=== PATIENT | female | born 1955 | race Caucasian/White ===

== ENCOUNTER 2020-12-18 06:09 | Day surgery (SDC) | payer OTHER ==
[~2020-12-18] VITALS: Ht 154.9 cm; Wt 56.8 kg
[~2020-12-18 06:09] MED LIST: AMLO-258 PO; ASPI-1450 PO; ATOR40TA28 PO; CALC-261 PO; CLOP75TA60 PO; DOCU-275 PO; INSLAN SQ; INSU100V SQ; LISI-894 PO; PANT-31 PO; SERT-162 PO; SPIR25 PO
[2020-12-18] MEDS ORDERED: MIDAZOLAM HCL 2 MG/2 ML VIAL IVP ONE (06:10)
[2020-12-18] MEDS ORDERED: CHONDR SULF A SOD/HYALURONATE 1.05 ML KIT IO ONE (06:10)
[2020-12-18] MEDS ORDERED: BALANCED SALT 15 ML OPHTHALMIC IRRIG.SOLN IO ONE (06:10)
[2020-12-18] MEDS ORDERED: EPINEPHrine 1:1,000 [1 MG/ML] AMP IM ONE (06:10)
[2020-12-18] MEDS ORDERED: FentaNYL CITRATE PF 100 MCG/2 ML VIAL IVP ONE (06:10)
[2020-12-18] MEDS ORDERED: TETRACAINE HCL/PF 0.5% 4 ML OPHTHALMIC SOLUTION OU ONE (06:10)
[2020-12-18] MEDS ORDERED: POVIDONE-IODINE 10% 15 ML SOLUTION UD TP ONE (06:10)
[2020-12-18] MEDS ORDERED: LIDOCAINE/PF 1% 2 ML VIAL IM ONE (06:10)
[2020-12-18] MEDS ORDERED: RINGERS SOLUTION,LACTATED 500 ML IV ONE ×3 (06:46→08:00)
[2020-12-18 06:48] LABS: COVID AG,FIA SOURCE NASOPHARYNGEAL
[2020-12-18] MEDS ORDERED: FURO40 PO (06:56)
[2020-12-18] MEDS ORDERED: KETOROLAC TROMETHAMINE 0.5% 5 ML OPHTHALMIC SOLUTION ONE (06:58)
[2020-12-18] MEDS ORDERED: TROPICAMIDE 1% 2 ML OPHTHALMIC SOLUTION ONE (06:59)
[2020-12-18] MEDS ORDERED: PHENYLEPHRINE HCL 2.5% 2 ML OPHTHALMIC SOLUTION ONE (06:59)
[2020-12-18] MEDS ORDERED: MOXIFLOXACIN HCL 0.5% 3 ML OPHTHALMIC SOLUTION ONE (06:59)
[2020-12-18] MEDS: PHENYLEPHRINE HCL 2.5% 2 ML OPHTHALMIC SOLUTION OS SCH ×3 (07:17→07:25)
[2020-12-18] MEDS: KETOROLAC TROMETHAMINE 0.5% 5 ML OPHTHALMIC SOLUTION OS SCH ×3 (07:17→07:25)
[2020-12-18] MEDS: TROPICAMIDE 1% 2 ML OPHTHALMIC SOLUTION OS SCH ×3 (07:18→07:25)
[2020-12-18] MEDS: MOXIFLOXACIN HCL 0.5% 3 ML OPHTHALMIC SOLUTION OS SCH ×3 (07:18→07:25)
[2020-12-18 07:27] LABS: GLUCOMETER DEV NAME(LOC) SDS.; GLUCOSE,POINT OF CARE 127 MG/DL (70-110)
== END 2020-12-18 11:50 | disposition home or self-care (01) ==
LOC: SURGERY 06:09
PROVIDERS: ATTEND Ophthalmology
DX: E11.36 Type 2 diabetes mellitus with diabetic cataract (principal); H25.12 Age-related nuclear cataract, left eye; I10 Essential (primary) hypertension; E11.3313 Type 2 diabetes mellitus with moderate nonproliferative diabetic retinopathy with macular edema, bilateral; E11.39 Type 2 diabetes mellitus with other diabetic ophthalmic complication; H40.033 Anatomical narrow angle, bilateral; Z98.890 Other specified postprocedural states; Z86.73 Personal history of transient ischemic attack (TIA), and cerebral infarction without residual deficits; Z79.4 Long term (current) use of insulin; Z79.899 Other long term (current) drug therapy
CPT/HCPCS: 66984; 82962; 87426; 93005; A9575; C9803; J0171; J2250; J3010; J3490; J7120; V2632

== ENCOUNTER 2021-01-22 07:25 | Day surgery (SDC) | payer OTHER ==
[2021-01-20 13:22] LABS: COVID AG,FIA SOURCE NASOPHARYNGEAL
[~2021-01-22] VITALS: Ht 154.9 cm; Wt 68.2 kg
[~2021-01-22 07:25] MED LIST changes: +FURO40 PO; +KETOROLAC TROMETHAMINE 0.5% 5 ML OPHTHALMIC SOLUTION ONE; +MOXIFLOXACIN HCL 0.5% 3 ML OPHTHALMIC SOLUTION ONE; +PHENYLEPHRINE HCL 2.5% 2 ML OPHTHALMIC SOLUTION ONE; +RINGERS SOLUTION,LACTATED 500 ML IV ONE; +SPIR-37 PO; -SPIR25 PO; +TROPICAMIDE 1% 2 ML OPHTHALMIC SOLUTION ONE
[2021-01-22] MEDS ORDERED: RINGERS SOLUTION,LACTATED 500 ML IV ONE (07:30)
[2021-01-22] MEDS: PHENYLEPHRINE HCL 2.5% 2 ML OPHTHALMIC SOLUTION OD SCH ×3 (08:26→08:37)
[2021-01-22 08:27] LABS: GLUCOMETER DEV NAME(LOC) SDS.; GLUCOSE,POINT OF CARE 104 MG/DL (70-110)
[2021-01-22] MEDS: KETOROLAC TROMETHAMINE 0.5% 5 ML OPHTHALMIC SOLUTION OD SCH ×3 (08:27→08:37)
[2021-01-22] MEDS: MOXIFLOXACIN HCL 0.5% 3 ML OPHTHALMIC SOLUTION OD SCH ×3 (08:27→08:37)
[2021-01-22] MEDS: TROPICAMIDE 1% 2 ML OPHTHALMIC SOLUTION OD SCH ×3 (08:27→08:37)
[2021-01-22] MEDS ORDERED: MIDAZOLAM HCL 2 MG/2 ML VIAL IVP ONE (12:00)
[2021-01-22] MEDS ORDERED: FentaNYL CITRATE PF 100 MCG/2 ML VIAL IV ONE (12:00)
[2021-01-22] MEDS ORDERED: EPINEPHrine 1:10,000 [1 MG/10 ML] SYRINGE ONE (17:46)
[2021-01-22] MEDS ORDERED: CHONDR SULF A SOD/HYALURONATE 1.05 ML KIT IO ONE (17:46)
[2021-01-22] MEDS ORDERED: BALANCED SALT 15 ML OPHTHALMIC IRRIG.SOLN ONE (17:46)
[2021-01-22] MEDS ORDERED: TETRACAINE HCL/PF 0.5% 4 ML OPHTHALMIC SOLUTION ONE (17:46)
[2021-01-22] MEDS ORDERED: POVIDONE-IODINE 10% 15 ML SOLUTION UD ONE (17:46)
== END 2021-01-22 11:00 | disposition home or self-care (01) ==
LOC: SURGERY 07:25
PROVIDERS: ATTEND Ophthalmology
DX: E11.36 Type 2 diabetes mellitus with diabetic cataract (principal); H25.11 Age-related nuclear cataract, right eye; F32.9 Major depressive disorder, single episode, unspecified; I10 Essential (primary) hypertension; E78.00 Pure hypercholesterolemia, unspecified; Z79.4 Long term (current) use of insulin; Z79.899 Other long term (current) drug therapy
CPT/HCPCS: 66984; 82962; 87426; A9575; C9803; J0171; J2250; J3010; J7120; V2632